=== PATIENT | female | born 1985 | race Caucasian/White ===

== ENCOUNTER 2016-07-10 13:44 | Outpatient (CLI) ==
[2016-02-24 14:48] VITALS: BMI 56.3
[2016-07-10 17:13] LABS: FLU INTERNAL QC INTERNAL QC VALID; RAPID FLU A POSITIVE (NEGATIVE); RAPID FLU B NEGATIVE (NEGATIVE)
== END 2016-07-10 13:45 | disposition home or self-care (01) ==
LOC: LAB 13:44
PROVIDERS: ATTEND Nurse Practitioner Family
DX: R50.9 Fever, unspecified (principal); R52 Pain, unspecified
CPT/HCPCS: 87651; 87804; 87880

== ENCOUNTER 2016-08-24 13:36 | Emergency (ER) ==
[2016-08-24 13:44] VITALS: BP 152/98; TEMP 98.9; BMI 61.0
[2016-08-24] MEDS ORDERED: TORADOL IM STA (14:06)
--- NOTE | 2016-08-24 14:09 | ED.PDOC ---
General ED Provider: Dr. JEAN PIERRE BURRELL Chief Complaint: Back Pain Stated Complaint: Was doing laundry today, started hurting in the lower back, hurts to move and bend. Time Seen by Physician: 14:07 Mode of Arrival: Walk-In Information Source: Patient Primary Care Provider: JEAN PIERRE BURRELL-[facility] Nursing and Triage Documentation Reviewed and Agree: Yes Musculoskeletal Complaint Exam - Back Pain Complaint/Exam Mechanism of Injury: Reports: No known trauma Symptoms Are: Still present Timing: Constant Episodes Lasting: Hours Initial Severity: Moderate Current Severity: Moderate Location: Reports: Discrete, Radiating Character: Reports: Aching, Throbbing Aggravating: Reports: Movements, Lifting Alleviating: Reports: None Associated Signs and Symptoms: Denies: Swelling, Redness, Bruising, Fever, Weakness, Numbness, Tingling, Abdominal pain, Flank pain, Bladder incontinence, Bowel incontinence, Weight loss, Pain with weight bearing Related History: Reports: Similar episode TAD Risk Factors: Reports: None AAA Risk Factors: Reports: None Cauda Equina Risk Factors: Reports: None Epidural Abcess Risk Factors: Reports: None Related Surgical History: Reports: None Focal Tenderness: Yes Paraspinal Muscle Tenderness: Yes Paraspinal Muscle Spasm: Yes Scoliosis: No Lordosis: No Kyphosis: No SLR Test: Right Negative, Left Negative Focal Weakness: Present: None Focal Sensory Loss: Present: None Gait: Present: Normal Differential Diagnoses: Arthritis, Strain Review of Systems - Review Of Systems Constitutional: Reports: No symptoms Eyes: Reports: No symptoms Ears, Nose, Mouth, Throat: Reports: No symptoms Respiratory: Reports: No symptoms Cardiac: Reports: No symptoms GI: Reports: No symptoms : Reports: No symptoms Musculoskeletal: Reports: Back pain Skin: Reports: No symptoms Neurological: Reports: No symptoms Endocrine: Reports: No symptoms Hematologic/Lymphatic: Reports: No symptoms All Other Systems: Reviewed and Negative Past Medical History - Past Medical History Previously Healthy: Yes Endocrine: Reports: None Cardiovascular: Reports: Hypertension Respiratory: Reports: None Hematological: Reports: None Gastrointestinal: Reports: None Genitourinary: Reports: None Neuro/Psych: Reports: Depression Musculoskeletal: Reports: None Cancer: Reports: None Last Menstrual Period: depo shot - Surgical History General Surgical History: Reports: None - Family History Family History: Reports: None - Social History Smoking Status: Never smoker Hx Substance Use: No Alcohol Screening: None - Immunizations Tetanus Shot up to Date: Yes Physical Exam - Physical Exam Appearance: Well-appearing, No pain distress, Well-nourished Eyes: CA, EOMI, Conjunctiva clear ENT: Ears normal, Nose normal, Oropharynx normal Respiratory: Airway patent, Breath sounds clear, Breath sounds equal, Respirations nonlabored Cardiovascular: RRR, Pulses normal, No rub, No murmur GI/: Soft, Nontender, No masses, Bowel sounds normal, No Organomegaly Musculoskeletal: Normal strength, ROM intact, No edema, No calf tenderness Skin: Warm, Dry, Normal color Neurological: Sensation intact, Motor intact, Reflexes intact, Cranial nerves intact, Alert, Oriented Psychiatric: Affect appropriate, Mood appropriate Interpretation - Radiology Interpretation Radiology Interpretation By: ED Physician Radiology Results: Negative Exam Interpreted: CXR Critical Care Note - Critical Care Note Total Time (mins): 0 Course - Course Orders, Labs, Meds: Orders Category Date Time Status Ketorolac Tromethamine [Toradol] MEDS 08/24/16 14:06 Discontinued 60 mg IM ONCE STA LUMBAR SPINE, 2 OR 3 VIEWS Stat RADS 08/24/16 14:06 Taken Medications Discontinued Medications Generic Name Dose Route Start Last Admin Trade Name Freq PRN Reason Stop Dose Admin Ketorolac Tromethamine 60 mg 08/24/16 14:06 08/24/16 14:21 Toradol IM 08/24/16 14:07 60 mg ONCE STA Administration Vital Signs: Temp Pulse Resp BP Pulse Ox 08/24/16 13:36 98.9 F 89 20 152/98 H 98 Departure - Departure Time of Disposition: 14:30 Disposition: HOME SELF-CARE Discharge Problem: Backache Instructions: Lower Back Exercises (ED) Condition: Stable Pt referred to PMD for follow-up: Yes Additional Instructions: rest hot pack Take medication with food Prescriptions: Prednisone 10 mg PO BIDWM #14 tablet Tramadol HCl 50 mg PO BID #14 tablet Allergies/Adverse Reactions: Allergies No Known Allergies Allergy (Verified 08/24/16 13:45) Home Medications: Ambulatory Orders Medroxyprogesterone Acetate [Depo-Provera] 150 mg IM every 3 mo 12/14/13 Meloxicam 7.5 mg PO DAILY 01/15/16 Prednisone 10 mg PO BIDWM #14 tablet 08/24/16 Tramadol HCl 50 mg PO BID #14 tablet 08/24/16 Disposition Discussed With: Patient
--- NOTE | 2016-08-24 14:32 | DI ---
EXAM: Lumbar spine, three view. HISTORY: Low back pain. COMPARISON: None. FINDINGS: AP and lateral views of the lumbar spine and a coned down view of the lumbosacral junctio n.There are five non-rib bearing vertebral bodies. There is slight curvature of the spine to the le ft, measuring approximately 7 degrees. Disc heights and vertebral heights are well maintained. The re are no acute or healing fractures. There are no lytic or blastic lesions. No significant degener ative changes are seen. There is no facet hypertrophy. There is no spondylolisthesis or spondylolys is. Soft tissues are unremarkable. IMPRESSION: 1. No acute fracture. 2. Curvature of the spine to the left measuring 7 degrees. This may be partially positional.
== END 2016-08-24 14:41 | disposition home or self-care (01) ==
LOC: ED 13:36
DX: M54.5 Low back pain (principal)
CPT/HCPCS: 96372; 99282

== ENCOUNTER 2016-08-29 16:31 | Outpatient (CLI) ==
[2016-08-29 18:47] LABS: FLU INTERNAL QC INTERNAL QC VALID; RAPID FLU A NEGATIVE (NEGATIVE)
[2016-08-29 18:53] LABS: RAPID FLU B POSITIVE (NEGATIVE)
== END 2016-08-29 16:32 | disposition home or self-care (01) ==
LOC: LAB 16:31
PROVIDERS: ATTEND Nurse Practitioner Family
DX: R05 Cough (principal)
CPT/HCPCS: 87804; 87880

== ENCOUNTER 2016-09-24 17:44 | Outpatient (CLI) ==
[2016-09-24 18:17] LABS: BASOPHILS % (AUTO) 0.4 % (0.0-3.0); EOSINOPHILS # (AUTO) 0.2 K/ul (0.0-0.7); EOSINOPHILS % (AUTO) 2.8 % (0.0-7.0); HEMATOCRIT 36.9 % (37.0-47.0); HEMOGLOBIN 12.3 g/dl (12.0-16.0); IMMATURE GRANULOCYTE % (AUTO) 0.2 % (0.0-5.0); LYMPHOCYTES # (AUTO) 1.7 K/uL (0.60-3.4); LYMPHOCYTES % (AUTO) 20.3 (10.0-50.0); MEAN CORPUSCULAR HEMOGLOBIN 27.2 pg (27.0-31.0); MEAN CORPUSCULAR HGB CONC 33.3 (31.8-35.4); MEAN CORPUSCULAR VOLUME 81.5 fl (81.0-99.0); MONOCYTES # (AUTO) 0.6 K/uL (0.4-2.0); NEUTROPHILS # (AUTO) 5.8 K/ul (2.0-6.9); NEUTROPHILS % (AUTO) 69.3; PLATELET COUNT 244 10^3/uL (140-440); RED BLOOD COUNT 4.53 10^6/ul (4.20-5.40); WHITE BLOOD COUNT 8.33 K/ul (4.6-10.2)
[2016-09-24 18:23] LABS: SERUM PREGNANCY INTERNAL QC INTERNAL QC VALID
[2016-09-24 18:31] LABS: ALBUMIN 3.8 g/dL (3.4-5.0); ALBUMIN/GLOBULIN RATIO 0.97; ANION GAP 14.7; BILIRUBIN,TOTAL 0.76 mg/dL (0.00-1.20); BUN/CREATININE RATIO 20.22; CALCIUM 9.4 mg/dL (8.2-10.2); CREATININE 0.89 mg/dL (0.60-1.30); POTASSIUM 3.7 mmol/L (3.5-5.10); TOTAL PROTEIN 7.7 g/dL (6.4-8.2)
== END 2016-09-24 17:45 | disposition home or self-care (01) ==
LOC: LAB 17:44
PROVIDERS: ATTEND Nurse Practitioner Family
DX: E66.9 Obesity, unspecified (principal); Z72.51 High risk heterosexual behavior
CPT/HCPCS: 36415; 80053; 84703; 85025

== ENCOUNTER 2017-02-03 15:20 | Outpatient (CLI) ==
[2017-02-03 15:28] LABS: BASOPHILS % (AUTO) 0.3 % (0.0-3.0); EOSINOPHILS # (AUTO) 0.2 K/ul (0.0-0.7); EOSINOPHILS % (AUTO) 2.5 % (0.0-7.0); HEMATOCRIT 37.2 % (37.0-47.0); HEMOGLOBIN 12.4 g/dl (12.0-16.0); IMMATURE GRANULOCYTE % (AUTO) 0.3 % (0.0-5.0); LYMPHOCYTES # (AUTO) 1.3 K/uL (0.60-3.4); LYMPHOCYTES % (AUTO) 18.2 (10.0-50.0); MEAN CORPUSCULAR HEMOGLOBIN 27.3 pg (27.0-31.0); MEAN CORPUSCULAR HGB CONC 33.3 (31.8-35.4); MEAN CORPUSCULAR VOLUME 81.8 fl (81.0-99.0); MONOCYTES # (AUTO) 0.5 K/uL (0.4-2.0); MONOCYTES % (AUTO) 6.5 (0-10); NEUTROPHILS # (AUTO) 5.1 K/ul (2.0-6.9); NEUTROPHILS % (AUTO) 72.2; PLATELET COUNT 234 10^3/uL (140-440); RED BLOOD COUNT 4.55 10^6/ul (4.20-5.40)
[2017-02-03 16:04] LABS: ALBUMIN 3.4 g/dL (3.4-5.0); ALBUMIN/GLOBULIN RATIO 0.79; ANION GAP 10.8; BILIRUBIN,TOTAL 1.15 mg/dL (0.00-1.20); BUN/CREATININE RATIO 14.47; CALCIUM 9.7 mg/dL (8.2-10.2); CHOL/HDL RATIO 3.8 (4.5-5.5); CREATININE 0.76 mg/dL (0.60-1.30); POTASSIUM 3.8 mmol/L (3.5-5.10); TOTAL PROTEIN 7.7 g/dL (6.4-8.2)
== END 2017-02-03 15:21 | disposition home or self-care (01) ==
LOC: LAB 15:20
PROVIDERS: ATTEND Nurse Practitioner Family
DX: E66.9 Obesity, unspecified (principal); Z72.51 High risk heterosexual behavior
CPT/HCPCS: 36415; 80053; 80061; 84443; 85025

== ENCOUNTER 2017-08-29 01:54 | Emergency (ER) ==
[2017-08-29 02:05] VITALS: BP 138/92; TEMP 102.4; BMI 67.0
[2017-08-29] MEDS ORDERED: DECADRON 4 MG/ML SDV IM STA (02:17)
[2017-08-29] MEDS ORDERED: TYLENOL PO STA (02:17)
--- NOTE | 2017-08-29 02:35 | ED.PDOC ---
General ED Provider: Dr. JEAN PIERRE BURRELL Chief Complaint: Fever Stated Complaint: Been coughing, congested, not able to get any sputum. Fever chills, bodyaches Time Seen by Physician: 02:33 Mode of Arrival: Walk-In Information Source: Patient Primary Care Provider: SOTO CHASE Nursing and Triage Documentation Reviewed and Agree: Yes Reviewed sepsis parameters & appropriate labs ordered?: Yes System Inflammatory Response Syndrome: Temp 101F or Greater, Temp 96.8F or Lower Sepsis Protocol: For patient's 13 years and over: Temp is 96.8 and below OR 101 and greater Pulse >90 BPM Resp >20/minute Acutely Altered Mental Status Are patient's symptoms suggestive of a new infection, such as: -Pneumonia -Skin, Soft Tissue -Endocarditis -UTI -Bone, Joint Infection -Implantable Device -Acute Abdominal Infection -Wound Infection -Meningitis -Blood Stream Catheter Infection -Unknown Miscellaneous Complaint Exam - Febrile Illness/Adult Complaint/Exam Symptoms Are: Still present Timing: Constant Initial Severity: Mild Current Severity: Moderate Aggravating: Reports: None Alleviating: Reports: None Associated Signs and Symptoms: Reports: Cough, Arthralgia, Myalgia Pseudomonas Risk Factors: Reports: None Serious Bacterial Infection Risk Factors: Reports: None Current Antibiotic Use: No Related Surgical History: None Differential Diagnoses: Bacteremia, Viremia, Other Review of Systems - Review Of Systems Constitutional: Reports: Fever, Malaise, Weakness Eyes: Reports: No symptoms Ears, Nose, Mouth, Throat: Reports: No symptoms Respiratory: Reports: Cough Cardiac: Reports: No symptoms GI: Reports: No symptoms : Reports: No symptoms Musculoskeletal: Reports: No symptoms Skin: Reports: No symptoms Neurological: Reports: No symptoms Endocrine: Reports: No symptoms Hematologic/Lymphatic: Reports: No symptoms All Other Systems: Reviewed and Negative Past Medical History - Past Medical History Previously Healthy: Yes Endocrine: Reports: None Cardiovascular: Reports: Hypertension Respiratory: Reports: None Hematological: Reports: None Gastrointestinal: Reports: None Genitourinary: Reports: None Neuro/Psych: Reports: Depression Musculoskeletal: Reports: None Cancer: Reports: None Last Menstrual Period: LAST MONTH - Surgical History General Surgical History: Reports: None - Family History Family History: Reports: None - Social History Smoking Status: Never smoker Hx Substance Use: No Alcohol Screening: None - Immunizations Tetanus Shot up to Date: Yes Physical Exam - Physical Exam Appearance: Ill-appearing, Obese Eyes: CA, EOMI, Conjunctiva clear ENT: Ears normal, Nose normal, Oropharynx normal Respiratory: Airway patent, Breath sounds clear, Breath sounds equal, Respirations nonlabored Cardiovascular: RRR, Pulses normal, No rub, No murmur GI/: Soft, Nontender, No masses, Bowel sounds normal, No Organomegaly Musculoskeletal: Normal strength, ROM intact, No edema, No calf tenderness Skin: Warm, Dry, Normal color Neurological: Sensation intact, Motor intact, Reflexes intact, Cranial nerves intact, Alert, Oriented Psychiatric: Affect appropriate, Mood appropriate Interpretation - Radiology Interpretation Radiology Interpretation By: ED Physician Radiology Results: Negative Exam Interpreted: CXR Critical Care Note - Critical Care Note Total Time (mins): 30 Course - Course Hematology/Chemistry: 08/29/17 03:00 Orders, Labs, Meds: Lab Review 08/29/17 08/29/17 02:30 03:00 WBC 8.60 RBC 4.21 Hgb 11.1 L Hct 33.4 L MCV 79.3 L MCH 26.4 L MCHC 33.2 RDW Coeff of Mikey 12.9 Plt Count 203 Immature Gran % (Auto) 0.5 Neut % (Auto) 82.1 Lymph % (Auto) 9.8 L [place] % (Auto) 6.7 Eos % (Auto) 0.6 Baso % (Auto) 0.3 Immature Gran # (Auto) 0.0 Neut # (Auto) 7.1 H Lymph # (Auto) 0.8 [place] # (Auto) 0.6 Eos # (Auto) 0.1 Baso # (Auto) 0.0 Influ A Molecular Assay Negative by naat Influ B Molecular Assay Negative by naat Orders Category Date Time Status BLOOD CULTURE Stat LAB 08/29/17 03:00 Received CBC W/ AUTO DIFF Stat LAB 08/29/17 03:00 Completed COMPREHENSIVE METABOLIC PANEL Stat LAB 08/29/17 03:00 Received FLU A/B MOLECULAR Stat LAB 08/29/17 02:30 Completed LACTIC ACID Stat LAB 08/29/17 03:00 Received PROCALCITONIN Stat LAB 08/29/17 03:00 Received Acetaminophen [Tylenol] MEDS 08/29/17 02:17 Discontinued 500 mg PO ONCE STA Cephalexin [Keflex] MEDS 08/29/17 03:23 Stat 500 mg PO ONCE STA Dexamethasone 4 mg/ml Inj [Decadron 4 mg/ml Sdv] MEDS 08/29/17 02:17 Discontinued 4 mg IM ONCE STA CHEST, 2 VIEWS PA & LAT Stat RADS 08/29/17 02:17 Completed Medications Generic Name Dose Route Start Last Admin Trade Name Fermin PRN Reason Stop Dose Admin Cephalexin 500 mg 08/29/17 03:23 Keflex PO 08/29/17 03:24 ONCE STA Discontinued Medications Generic Name Dose Route Start Last Admin Trade Name Fermin PRN Reason Stop Dose Admin Acetaminophen 500 mg 08/29/17 02:17 08/29/17 02:29 Tylenol PO 08/29/17 02:18 500 mg ONCE STA Administration Dexamethasone Sodium Phosphate 4 mg 08/29/17 02:17 08/29/17 02:30 Decadron 4 Mg/Ml Sdv IM 08/29/17 02:18 4 mg ONCE STA Administration Vital Signs: Temp Pulse Resp BP Pulse Ox 08/29/17 01:58 102.4 F H 113 H 18 138/92 H 95 Departure - Departure Time of Disposition: 03:06 Disposition: HOME SELF-CARE Discharge Problem: URTI (acute upper respiratory infection) Instructions: Upper Respiratory Infection (ED) Condition: Stable Pt referred to PMD for follow-up: Yes IPMP verified?: No Additional Instructions: Increase hydration Tylenol prn F/u in 3-4 days at [facility] Prescriptions: Cephalexin [Keflex] 500 mg PO Q12HR #20 capsule Guaifenesin/Dextromethorphan [Robitussin Cough-Chest Dm Liq] 10 ml PO TID #1 bottle Prednisone 10 mg PO BIDWM #14 tablet Allergies/Adverse Reactions: Allergies No Known Allergies Allergy (Verified 08/29/17 02:05) Home Medications: Ambulatory Orders Meloxicam 7.5 mg PO DAILY 01/15/16 Cephalexin [Keflex] 500 mg PO Q12HR #20 capsule 08/29/17 Citalopram Hydrobromide [Citalopram HBr] 20 mg PO DAILY 08/29/17 Guaifenesin/Dextromethorphan [Robitussin Cough-Chest Dm Liq] 10 ml PO TID #1 bottle 08/29/17 Lisinopril 10 mg PO DAILY 08/29/17 Prednisone 10 mg PO BIDWM #14 tablet 08/29/17 Disposition Discussed With: Patient
--- NOTE | 2017-08-29 02:58 | DI ---
EXAM: Two-view chest HISTORY: Cough COMPARISON: Two-view chest 05/12/2012 FINDINGS: The cardiomediastinal silhouette is normal. The lungs are well expanded and clear bilater ally. No osseous abnormalities identified. IMPRESSION: No evidence of active pulmonary disease.
[2017-08-29] MEDS ORDERED: KEFLEX PO STA (03:23)
== END 2017-08-29 03:32 | disposition home or self-care (01) ==
LOC: ED 01:54
DX: J06.9 Acute upper respiratory infection, unspecified (principal)
CPT/HCPCS: 36415; 80053; 83605; 84145; 85025; 87040; 87502; 99283

== ENCOUNTER 2017-11-17 10:12 | Outpatient (CLI) | payer OTHER | END 2017-11-17 10:13 | disposition home or self-care (01) | LOC: RHC-LAB 10:12 | PROVIDERS: ATTEND Nurse Practitioner Family | DX: I10 Essential (primary) hypertension (principal); E66.9 Obesity, unspecified | CPT/HCPCS: 36415; 80053; 80061; 85025 ==

== ENCOUNTER 2018-01-13 08:06 | Emergency (ER) | payer OTHER ==
[2018-01-13 08:12] VITALS: BP 145/78; BMI 66.9
--- NOTE | 2018-01-13 08:27 | ED.PDOC ---
General ED Provider: Dr. MYRANDA VILLEGAS Chief Complaint: Sore Throat Stated Complaint: sore throat, fever Time Seen by Physician: 08:10 (seen with september) Mode of Arrival: Walk-In Information Source: Patient Exam Limitations: No limitations Primary Care Provider: SOTO CHASE Nursing and Triage Documentation Reviewed and Agree: Yes Does patient meet sepsis criteria?: Yes If yes, has appropriate treatment been initiated?: Yes System Inflammatory Response Syndrome: Temp 101F or Greater Sepsis Protocol: For patient's 13 years and over: Temp is 96.8 and below OR 101 and greater Pulse >90 BPM Resp >20/minute Acutely Altered Mental Status Are patient's symptoms suggestive of a new infection, such as: -Pneumonia -Skin, Soft Tissue -Endocarditis -UTI -Bone, Joint Infection -Implantable Device -Acute Abdominal Infection -Wound Infection -Meningitis -Blood Stream Catheter Infection -Unknown EENT Complaint Exam - Throat Complaint/Exam Onset/Duration: 1 day Symptoms Are: Still present Timimg: Intermittent Initial Severity: Mild Current Severity: Mild Aggravating: Reports: None Alleviating: Reports: None Associated Signs and Symptoms: Reports: Fever, Cough. Denies: Dysphagia, Drooling, Foreign body sensation, Chills, Wheezing, Hoarseness, Sinus discomfort , Nasal congestion, Difficulty breathing, Lethargy, Irritability, Decreased activity, Vomiting, Diarrhea, Decreased hearing, Ear drainage Uvula Midline: Yes Heidy-tonsillar Fluctuence: No Scarlatinaform Rash Present: No Lesions: Absent: Lip, Gums, Tongue, Buccal Mucosa, Pharynx Exanthem: Present: Pharynx Vesicles: Absent: Lip, Gums, Tongue, Buccal Mucosa, Pharynx Stridor Present: No Sinus Tenderness Present: No Tonsillar Hypertrophy Present: No Tonsillar Exudate Present: Yes Heidy-tonsillar Swelling Present: No Adenopathy Present: No Splenomegaly Present: No Differential Diagnoses: Pharyngitis Review of Systems - Review Of Systems Constitutional: Reports: No symptoms Eyes: Reports: No symptoms Ears, Nose, Mouth, Throat: Reports: No symptoms Respiratory: Reports: Cough Cardiac: Reports: Chest pain GI: Reports: No symptoms : Reports: No symptoms Musculoskeletal: Reports: No symptoms Skin: Reports: No symptoms Neurological: Reports: No symptoms Endocrine: Reports: No symptoms Hematologic/Lymphatic: Reports: No symptoms All Other Systems: Reviewed and Negative Past Medical History - Past Medical History Previously Healthy: Yes Endocrine: Reports: None Cardiovascular: Reports: Hypertension Respiratory: Reports: None Hematological: Reports: None Gastrointestinal: Reports: None Genitourinary: Reports: None Neuro/Psych: Reports: Depression Musculoskeletal: Reports: None Cancer: Reports: None Last Menstrual Period: mid sept - Surgical History General Surgical History: Reports: None - Family History Family History: Reports: None - Social History Smoking Status: Never smoker Hx Substance Use: No Alcohol Screening: None Physical Exam - Physical Exam Appearance: Well-appearing, No pain distress, Well-nourished Eyes: CA, EOMI, Conjunctiva clear ENT: Erythema, Exudate Respiratory: Airway patent, Breath sounds clear, Breath sounds equal, Respirations nonlabored Cardiovascular: RRR, Pulses normal, No rub, No murmur GI/: Soft, Nontender, No masses, Bowel sounds normal, No Organomegaly Musculoskeletal: Normal strength, ROM intact, No edema, No calf tenderness Skin: Warm, Dry, Normal color Neurological: Sensation intact, Motor intact, Reflexes intact, Cranial nerves intact, Alert, Oriented Psychiatric: Affect appropriate, Mood appropriate Critical Care Note - Critical Care Note Total Time (mins): 0 Course - Course Vital Signs: Temp Pulse Resp BP Pulse Ox 01/13/18 08:07 101.6 F H 127 H 20 145/78 H 96 Departure - Departure Time of Disposition: 08:27 Disposition: HOME SELF-CARE Discharge Problem: Sore throat symptom Pharyngitis Qualifiers: Pharyngitis/tonsillitis etiology: unspecified etiology Qualified Code(s): J02.9 - Acute pharyngitis, unspecified Instructions: Strep Throat (ED), Pharyngitis (ED) Condition: Good Pt referred to PMD for follow-up: Yes IPMP verified?: No Additional Instructions: Please call your Family Physician as soon as possible to schedule a follow-up appointment. Allergies/Adverse Reactions: Allergies No Known Allergies Allergy (Verified 01/13/18 08:14) Home Medications: Ambulatory Orders Lisinopril 10 mg PO DAILY 08/29/17 Amoxicillin 500 mg PO Q6HR #30 tablet 01/13/18 Disposition Discussed With: Patient
[2018-01-13] MEDS ORDERED: LIDOCAINE HCL 1% SDV IM STA (08:28)
[2018-01-13] MEDS ORDERED: ROCEPHIN IM STA (08:28)
[2018-01-13 09:08] VITALS: TEMP 99.4
== END 2018-01-13 09:08 | disposition home or self-care (01) ==
LOC: ED 08:06
DX: J02.9 Acute pharyngitis, unspecified (principal)
CPT/HCPCS: 96372; 99282

== ENCOUNTER 2018-01-16 19:33 | Emergency (ER) ==
[2018-01-16 19:49] VITALS: BMI 65.3
--- NOTE | 2018-01-16 20:14 | ED.PDOC ---
General ED Provider: Dr. JEAN PIERRE BURRELL Chief Complaint: Sore Throat Stated Complaint: Came for the thorat pain, says she is taking antibiotics and they are not helping, says the left side throat oain is getting worse, left ear is also hurting now Time Seen by Physician: 20:12 Mode of Arrival: Walk-In Information Source: Patient Primary Care Provider: SOTO CHASE Nursing and Triage Documentation Reviewed and Agree: Yes Does patient meet sepsis criteria?: Yes If yes, has appropriate treatment been initiated?: No System Inflammatory Response Syndrome: Pulse >90 BPM Sepsis Protocol: For patient's 13 years and over: Temp is 96.8 and below OR 101 and greater Pulse >90 BPM Resp >20/minute Acutely Altered Mental Status Are patient's symptoms suggestive of a new infection, such as: -Pneumonia -Skin, Soft Tissue -Endocarditis -UTI -Bone, Joint Infection -Implantable Device -Acute Abdominal Infection -Wound Infection -Meningitis -Blood Stream Catheter Infection -Unknown EENT Complaint Exam - Throat Complaint/Exam Symptoms Are: Still present Timimg: Constant Initial Severity: Moderate Current Severity: Moderate Aggravating: Reports: Eating Alleviating: Reports: None Associated Signs and Symptoms: Reports: Dysphagia. Denies: Fever, Drooling, Foreign body sensation, Chills, Cough, Wheezing, Hoarseness, Sinus discomfort, Nasal congestion, Difficulty breathing, Lethargy, Irritability, Decreased activity, Vomiting, Diarrhea, Decreased hearing, Ear drainage Related History: Reports: Similar Episode Uvula Midline: No Heidy-tonsillar Fluctuence: Yes Scarlatinaform Rash Present: No Stridor Present: No Sinus Tenderness Present: No Tonsillar Hypertrophy Present: Yes Tonsillar Exudate Present: No Heidy-tonsillar Swelling Present: Yes Adenopathy Present: Yes Splenomegaly Present: No Differential Diagnoses: Heidy-tonsillar Abcess, Pharyngitis Review of Systems - Review Of Systems Constitutional: Reports: No symptoms Eyes: Reports: No symptoms Ears, Nose, Mouth, Throat: Reports: Throat pain, Throat swelling Respiratory: Reports: No symptoms Cardiac: Reports: No symptoms GI: Reports: No symptoms : Reports: No symptoms Musculoskeletal: Reports: No symptoms Skin: Reports: No symptoms Neurological: Reports: No symptoms Endocrine: Reports: No symptoms Hematologic/Lymphatic: Reports: No symptoms All Other Systems: Reviewed and Negative Past Medical History - Past Medical History Previously Healthy: Yes Endocrine: Reports: None Cardiovascular: Reports: Hypertension Respiratory: Reports: None Hematological: Reports: None Gastrointestinal: Reports: None Genitourinary: Reports: None Neuro/Psych: Reports: Depression Musculoskeletal: Reports: None Cancer: Reports: None Last Menstrual Period: PRESENTLY - Surgical History General Surgical History: Reports: None - Family History Family History: Reports: None - Social History Smoking Status: Never smoker Hx Substance Use: No Alcohol Screening: None - Immunizations Tetanus Shot up to Date: Yes Physical Exam - Physical Exam Appearance: Well-appearing, No pain distress, Well-nourished Eyes: CA, EOMI, Conjunctiva clear ENT: Ears normal, Erythema (left side thorat swelling pushing UVULA TO RIGHT ), Exudate Respiratory: Airway patent, Breath sounds clear, Breath sounds equal, Respirations nonlabored Cardiovascular: RRR, Pulses normal, No rub, No murmur GI/: Soft, Nontender, No masses, Bowel sounds normal, No Organomegaly Musculoskeletal: Normal strength, ROM intact, No edema, No calf tenderness Skin: Warm, Dry, Normal color Neurological: Sensation intact, Motor intact, Reflexes intact, Cranial nerves intact, Alert, Oriented Psychiatric: Affect appropriate, Mood appropriate Interpretation - Radiology Interpretation Radiology Interpretation By: Radiologist Radiology Results: Positive Exam Interpreted: CT Scan Physician Notification - Case Discussed Time of Notification: 21:54 (Dr Mera) Critical Care Note - Critical Care Note Total Time (mins): 30 Course - Course Hematology/Chemistry: 01/16/18 20:20 01/16/18 20:20 Orders, Labs, Meds: Orders Category Date Time Status NPO REMINDER: IMAGING ONCE CARE 01/16/18 20:07 Active BLOOD CULTURE Stat LAB 01/16/18 20:10 Ordered CBC W/ AUTO DIFF Stat LAB 01/16/18 20:05 Ordered COMPREHENSIVE METABOLIC PANEL Stat LAB 01/16/18 20:05 Ordered LACTIC ACID Stat LAB 01/16/18 20:10 Ordered MOLECULAR GROUP A STREP Stat LAB 01/16/18 20:10 Uncollected PROCALCITONIN Stat LAB 01/16/18 Ordered SERUM Stat LAB 01/16/[address] SOFT TISSUE NECK W/CONTRAST Stat RADS 01/16/18 20:[address] SOFT TISSUE NECK W/O CONTR Stat RADS 01/16/18 20:05 Stop Req Vital Signs: Temp Pulse Resp BP Pulse Ox 01/16/18 19:34 98.5 F 111 H 24 149/90 H 99 Departure - Departure Time of Disposition: 21:54 Disposition: TSF OTHER Discharge Problem: Tonsillar abscess Instructions: Peritonsillar Abscess (DC) Condition: Stable Pt referred to PMD for follow-up: Yes IPMP verified?: No Allergies/Adverse Reactions: Allergies No Known Allergies Allergy (Verified 01/16/18 19:47) Home Medications: Ambulatory Orders Lisinopril 10 mg PO DAILY 08/29/17 Amoxicillin 500 mg PO Q6HR #30 tablet 01/13/18 Diclofenac Sodium 75 mg PO BID 01/16/18 Transfer Form Completed: Yes Disposition Discussed With: Patient, Family
--- NOTE | 2018-01-16 21:28 | CT ---
EXAM: CT of the neck with IV contrast. HISTORY: Left tonsil swollen. PROCEDURE: After the intravenous injection of contrast contiguous axial CT images of the neck were o btained with coronal and sagittal reformats. FINDINGS: The left tonsil is enlarged. There is an ill-defined area of decreased attenuation in the left tonsil measuring approximately 3.5 x 1.8 cm consistent with a phlegmon/developing abscess. Ther e is marked mass effect on the airway and narrowing of the airway which measures 8 mm x 4 mm at the l evel of the left tonsil. There are enlarged bilateral cervical lymph nodes measuring up to 2.2 cm in short axis. The parotid glands, submandibular glands and thyroid gland are normal in appearance. The epiglottis and prevertebral soft tissues are normal in appearance. The bones are unremarkable. The lung apices are normal in appearance. Impression: Enlarged left tonsil containing an ill-defined area of decreased attenuation measuring 1. 8 x 3.5 cm, consistent with a phlegmon/developing abscess. Marked mass effect on the airway and narro wing of the airway which measures 8 mm x 4 mm at the level of the left tonsil. Reactive cervical lymphadenopathy as described. Results discussed with the patient's ER physician on 01/16/2018 at 9:24 p.m.
[2018-01-16] MEDS ORDERED: AUGMENTIN 875-125 MG TAB PO STA (21:47)
[2018-01-16] MEDS ORDERED: VANCOMYCIN 1 GM in SODIUM CHLORIDE 250 ML IV STA (21:47)
[2018-01-16] MEDS ORDERED: CLEOCIN 900 MG in SODIUM CHLORIDE 50 ML IV ONE (21:52)
[2018-01-16] MEDS ORDERED: DECADRON 4 MG/ML SDV IVP STA (21:53)
[2018-01-16] MEDS ORDERED: SODIUM CHLORIDE 1,000 ML IV STA (21:54)
[2018-01-16] MEDS ORDERED: CLEOCIN ONE (22:03)
[2018-01-16] MEDS ORDERED: POTASSIUM CHL 10% ORAL SOL PO STA (22:19)
[2018-01-16 23:00] VITALS: BP 141/94; TEMP 99.3
== END 2018-01-16 22:55 | disposition short-term general hospital (02) ==
LOC: ED 19:33
DX: J36 Peritonsillar abscess (principal)
CPT/HCPCS: 36415; 80053; 83605; 84145; 84703; 85025; 87040; 87651; 96365; 96376; 99285

== ENCOUNTER 2018-03-30 10:25 | Outpatient (CLI) | END 2018-03-30 10:26 | disposition home or self-care (01) | LOC: RHC-LAB 10:25 | PROVIDERS: ATTEND Nurse Practitioner Family | DX: D64.9 Anemia, unspecified (principal); E87.6 Hypokalemia | CPT/HCPCS: 36415; 80053; 85025 ==

== ENCOUNTER 2018-08-30 08:28 | Outpatient (CLI) | END 2018-08-30 08:29 | disposition home or self-care (01) | LOC: RHC-LAB 08:28 | PROVIDERS: ATTEND Nurse Practitioner Family | DX: D64.9 Anemia, unspecified (principal); I10 Essential (primary) hypertension; E87.6 Hypokalemia | CPT/HCPCS: 36415; 80053; 80061; 84443; 85025 ==